=== PATIENT | male | born 1975 | race African-American/Black ===

== ENCOUNTER 2016-11-27 23:24 | Emergency (ER) | payer MEDICARE, MEDICAID ==
[~2016-11-27] VITALS: Ht 182.9 cm; Wt 97.0 kg
[~2016-11-27 23:24] MED LIST: CIPR500T4 PO; LISI-360 PO; LORTA5 PO; ZOFR4TAB3 SL
[2016-11-27 23:25] VITALS: BP 180/111; PULSE 93; RESP 16; TEMP 98.2; O2SAT 97
[2016-11-28] MEDS ORDERED: TETANUS/DIPHTHERIA TOXOID ADULT 0.5 ML VIAL IM ONE (01:00)
--- NOTE | 2016-11-28 01:01 | PD ---
HPI Chief Complaint: Injury Time Seen by Provider: 00:58 Travel History International Travel<30 days: No Contact w/Intl Traveler<30days: No Traveled to known affect area: No History of Present Illness HPI Patient comes in for evaluation of right foot pain after dropping a dumbbell on it 3 days ago. He states he believes 125 pound dumbbell is uncertain. Patient has been soaking in Epsom salts as well as using ice. Patient having aching throbbing pain the dorsal aspect of his right foot over the mid metatarsals. Pain is worse with walking palpation. Patient reports a tingling sensation in his foot. Patient is uncertain of his last tetanus shot. Patient reports he supposed be on high blood pressure medication but does not take it. PFSH Past Medical History Asthma: No Blood Disorders: No Anxiety: No Depression: No Heart Rhythm Problems: No Cancer: No Cardiovascular Problems: Yes (HTN-NOT TAKING PILLS FOR 2 MONTHS) High Cholesterol: No Chemotherapy: No Chest Pain: No Congestive Heart Failure: No COPD: No Diabetes: No Diminished Hearing: No Endocrine: No Genitourinary: No Hypertension: Yes Immune Disorder: No Musculoskeletal: No Neurologic: No (BOBBY) Psychiatric: No Reproductive: No Respiratory: No Radiation Therapy: No Sleep Apnea: No Thyroid Disease: No Past Surgical History Pacemaker: No Other Surgery: Yes (RIGHT HAND) Social History Alcohol Use: Yes (OCC) Tobacco Use: Yes (1/2 PACK/DAY) Substance Use: Yes (SMOKES "WEED"; PENNY) Allergies-Medications (Allergen,Severity, Reaction): Coded Allergies: No Known Allergies (Verified , 11/27/16) Reported Meds & Prescriptions Reported Meds & Active Scripts Active Keflex (Cephalexin) 500 Mg Cap 500 Mg PO Q12H 7 Days Naprosyn (Naproxen) 500 Mg Tab 500 Mg PO Q12HR PRN Review of Systems Except as stated in HPI: all other systems reviewed are Neg Physical Exam Narrative GENERAL: Well-developed, overly nourished, in no acute distress, and non-ill appearing. SKIN: Warm and dry. Small superficial healing wound noted dorsal aspect of right foot. It is afebrile, nonindurated, nonfluctuant, and without crepitus or drainage. HEAD: Atraumatic. Normocephalic. EYES: Pupils equal and round. EOMI. No scleral icterus. No injection or drainage. ENT: No nasal bleeding or discharge. Mucous membranes pink and moist. NECK: Trachea midline. Supple. No nuclear rigidity. CARDIOVASCULAR: Dorsal pulses 2+, intact, and equal bilaterally. Capillary refill less than 2 seconds. RESPIRATORY: No accessory muscle use. No respiratory distress. Clear to auscultation. Breath sounds equal bilaterally. GASTROINTESTINAL: Abdomen soft, non-tender, nondistended. Hepatic and splenic margins not palpable. Normal bowel sounds 4. No pulsatile mass. MUSCULOSKELETAL: No obvious deformities. No clubbing. No cyanosis. Soft tissue swelling noted over the dorsal aspect of right foot. Full range of motion. Negative squeeze test. Pulses equal BL distal to injury. Capillary refill less than 2 seconds distal to injury and equal BL. Sensation equal BL 1st web space. FROM of toes distal to injury and equal BL. NV intact distal to injury and equal BL. Dorsal pulses equal BL. NEUROLOGICAL: Awake and alert. No obvious cranial nerve deficits. Motor grossly within normal limits. Normal speech. PSYCHIATRIC: Appropriate mood and affect; insight and judgment normal. Data Data Last Documented VS Vital Signs Date Time Temp Pulse Resp B/P Pulse Ox O2 Delivery O2 Flow Rate FiO2 11/27/16 23:25 98.2 93 16 180/111 97 Room Air Orders Foot, Complete ([id number]) (11/28/16 ) Ice/Cold Pack (11/28/16 00:44) Tetanus/Diphtheria Tox Adult (Tetanus/Di (11/28/16 01:00) Naproxen (Naprosyn) (11/28/16 02:00) Cephalexin (Keflex) (11/28/16 02:00) MDM Medical Decision Making Medical Screen Exam Complete: Yes Emergency Medical Condition: Yes Differential Diagnosis Fracture, sprain, contusion, laceration, puncture wound, other Narrative Course The patient appears to have suffered a contusion of the extremity. There is no clinical evidence to suspect bony injury by exam. Radiographic examination revealed no fracture seen at this time. The patient has full range of motion on active and passive motions. There is no significant edema. There is no proximal or distal joint effusion. The distal extremity appears neurovascularly intact, without evidence of neurovascular injury nor compartment syndrome. Tendon exam also was intact. The patient was discharged on pain medication instructions and given warnings for vascular compromise. The patient is to follow up with their regular physician or Orthopedics. The patient agrees with plan. Patient in no obvious distress upon re-evaluation. All pertinent Radiology result(s) discussed with patient. Patient was asked if they wanted to speak to my attending, which the patient did not wish to do at this time. Any questions/ concerns in reference to patient diagnosis/condition discussed and clarified prior to patient's discharge. Reinforced sheer importance of close follow up with patient's primary physician or primary care clinic and/or yoga teacher. Instructed patient to return to ED immediately, if symptoms return/worsen. Pt showed understanding of above instructions. Further instructions and recommendations were detailed in discharge paperwork. Pt ambulated without difficulty out of ED at discharge. Diagnosis Primary Impression: Foot contusion Qualified Code: S90.31XA - Contusion of right foot, initial encounter Additional Impression: Abrasion foot/toe Referrals: Kvng Omalley DPM Patient Instructions: Abrasion (ED), Contusion in Adults (ED), General Instructions Additional Instructions: Follow-up with your primary care physician and/or yoga teacher in 2-3 days for reevaluation. Take all medication as prescribed. Apply ice affected area 20 minutes prior as needed for pain. Keep wound dry and clean as possible using soap and water. Use Neosporin to promote healing. Return to the emergency department if symptoms get worse. Med/Other Pt SpecificInfo: Prescription(s) given Scripts Cephalexin (Keflex)500 Mg [id number] Mg PO Q12H 7 Days Ref 0 Prov:Niecy George MD 11/28/16 Naproxen (Naprosyn)500 Mg [id number] Mg PO Q12HR PRN (PAIN SCALE 1 TO 10) #14 TAB Ref 0 Prov:Niecy George MD 11/28/16 Disposition: 01 DISCHARGE HOME Condition: Stable Cachorro Soria Nov 28, 2016 01:01
--- NOTE | 2016-11-28 01:38 | RADRPT ---
EXAM DATE/TIME: 11/28/2016 01:01 [facility] COMPARISON: No previous studies available for comparison. INDICATIONS : Right foot pain. MEDICAL HISTORY : None. SURGICAL HISTORY : None. ENCOUNTER: Initial ACUITY: 1 day PAIN SCORE: 5/10 LOCATION: Right foot. FINDINGS: Three view examination of the right foot demonstrates no soft tissue swelling, dislocation, or fractu re. The tarsal bones appear intact. There is a mild pes planus deformity. CONCLUSION: 1. Pes planus. No acute bony abnormality. Stewart Rey MD on November 28, 2016 at 1:34 Board Certified Radiologist. This report was verified electronically.
[2016-11-28] MEDS ORDERED: CEPH-460 PO (01:53)
[2016-11-28] MEDS ORDERED: NAPR500 PO (01:53)
[2016-11-28] MEDS ORDERED: NAPROXEN 500 MG TAB PO ONE (02:00)
[2016-11-28] MEDS ORDERED: CEPHALEXIN MONOHYDRATE 500 MG CAP PO ONE (02:00)
== END 2016-11-28 02:07 | disposition home or self-care (01) ==
LOC: NEPB 23:24
DX: S90.31XA Contusion of right foot, initial encounter (principal); S90.811A Abrasion, right foot, initial encounter; Z23 Encounter for immunization; I10 Essential (primary) hypertension; F17.210 Nicotine dependence, cigarettes, uncomplicated; W20.8XXA Other cause of strike by thrown, projected or falling object, initial encounter; Y93.B3 Activity, free weights; Y99.8 Other external cause status
CPT/HCPCS: 73630; 90471; 90714

== ENCOUNTER 2017-08-24 11:44 | Emergency (ER) | payer OTHER, MEDICARE ==
[~2017-08-24 11:44] MED LIST changes: +CEPH-460 PO; -CIPR500T4 PO; -LISI-360 PO; -LORTA5 PO; +NAPR500 PO; -ZOFR4TAB3 SL
[2017-08-24 11:45] VITALS: BP 188/98; PULSE 93; RESP 18; TEMP 98.6; O2SAT 100
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
[2017-08-24] MEDS ORDERED: IBUPROFEN 800 MG TAB PO ONE (12:00)
[2017-08-24] MEDS ORDERED: IBUP1TAB7 PO (12:54)
[2017-08-24] MEDS ORDERED: MAPA500T13 PO (12:54)
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
== END 2017-08-24 13:17 | disposition home or self-care (01) ==
LOC: NEPD 11:44
DX: T14.90XA Injury, unspecified, initial encounter (principal); V43.52XA Car driver injured in collision with other type car in traffic accident, initial encounter; Y92.410 Unspecified street and highway as the place of occurrence of the external cause
CPT/HCPCS: 72100; 73502; 99284

== ENCOUNTER 2017-10-16 02:49 | Emergency (ER) | payer MEDICARE, OTHER ==
[~2017-10-16] VITALS: Ht 185.4 cm; Wt 95.5 kg
[~2017-10-16 02:49] MED LIST changes: -CEPH-460 PO; +IBUP1TAB7 PO; +MAPA500T13 PO; -NAPR500 PO
[2017-10-16 02:50] VITALS: BP 205/101; PULSE 112; RESP 18; TEMP 97.8; O2SAT 96
[2017-10-16 03:10] VITALS: BP 119/118; PULSE 105; RESP 18; O2SAT 97
[2017-10-16] MEDS ORDERED: AMOXICILLIN 875 MG TAB PO ONE (03:15)
[2017-10-16] MEDS ORDERED: AMOX875T PO (03:24)
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
== END 2017-10-16 03:45 | disposition home or self-care (01) ==
LOC: NEPD 02:49
DX: H65.191 Other acute nonsuppurative otitis media, right ear (principal); I10 Essential (primary) hypertension; F17.210 Nicotine dependence, cigarettes, uncomplicated
CPT/HCPCS: 99283